=== PATIENT | female | born 1935 | race African-American/Black ===

== ENCOUNTER 2017-01-25 17:48 | Inpatient (IN) ==
[2017-01-25] MEDS ORDERED: methylPREDNISolone SOD SUC 125 MG/2 ML VIAL IV STA (18:56)
[2017-01-25] MEDS ORDERED: ONDANSETRON 4 MG/2 ML VIAL IV STA (18:56)
[2017-01-25] MEDS ORDERED: FUROSEMIDE 100 MG/10 ML VIAL IV STA (18:56)
[2017-01-25] MEDS ORDERED: cefTRIAXone 1,000 MG in SODIUM CHLORIDE 0.9% 100 ML IV STA (18:56)
[2017-01-25] MEDS ORDERED: ALBUTEROL 2.5 MG/3 ML NEB RESP TX SCH (19:00)
[2017-01-25] MEDS ORDERED: FUROSEMIDE 100 MG/10 ML VIAL ONE (20:26)
[2017-01-25] MEDS ORDERED: ONDANSETRON 4 MG/2 ML VIAL ONE (20:26)
[2017-01-25] MEDS ORDERED: methylPREDNISolone SOD SUC 125 MG/2 ML VIAL ONE (20:26)
[2017-01-25] MEDS ORDERED: cefTRIAXone 250 MG VIAL ONE (20:26)
[2017-01-25 20:34] LABS: Basophils # 0.1 10*3/uL (0.0-0.2); Basophils % 0.3 % (0.0-0.8); Eosinophils # 0.2 10*3/uL (0.0-0.87); Eosinophils % 1.2 % (0.00-10.9); Hematocrit 39.6 VOL% (35.7-47.0); Hemoglobin 13.3 GM/DL (12.0-16.0); Immature Granulocytes % 0.6 %; Immature Granulocytes Absolute 0.09 #; Lymphocytes # 1.5 10*3/uL (1.4-4.0); Lymphocytes % 10.2 % (21.3-54.2); Mean Corpuscular HGB Conc 33.6 GM/DL (32-36); Mean Corpuscular Hemoglobin 27 PG (27-34); Mean Platelet Volume 11.4 FL (9.6-12.0); Monocytes # 0.7 10*3/uL (0.11-0.8); Monocytes % 4.8 % (1.7-12.7); Neutrophils # 12.1 10*3/uL (1.4-7.4); Neutrophils % 82.9 % (38.7-73.9); Platelet Count 270 T/CUMM (130-400); Red Blood Count 4.95 MC/CUMM (3.8-5.5); Red Cell Distribution Width 14.9 % (9.3-17.3); White Blood Count 14.6 T/CUMM (4-12)
[2017-01-25] MEDS ORDERED: cefTRIAXone 1,000 MG VIAL ONE (20:35)
[2017-01-25] MEDS ORDERED: SODIUM CHLORIDE 0.9% 100 ML IV ONE (20:36)
[2017-01-25 20:40] LABS: Apearance,Urine CLOUDY (Clear); Bilirubin,Urine Negative (Negative); Blood, Urine Moderate mg/dL (Negative); Glucose,Urine (UA) 150 mg/dL (Negative); Ketones,Urine Negative (Negative); Nitrite,Urine Negative (Negative); Protein,Urine 30 MG/DL; RBC,Urine 39 /HPF (0-4); Squamous Epithelial Cell,Urine Occasional /HPF (0-10); Urine Color Dark yellow (Yellow); Urine Specific Gravity 1.019 (1.001-1.035); Urine Urobilinogen < 2.0 EU/DL (0.2-1.0); WBC,Urine 2110 /HPF (0-6)
[2017-01-25 20:45] LABS: PT Patient Result 10.7 SECS
[2017-01-25 21:13] LABS: Alanine Aminotransferase 21 U/L (13-56); Albumin 3.8 G/DL (3.4-5.0); Alkaline Phosphatase 68 U/L (45-117); Aspartate Amino Transferase 11 U/L (0-37); Bilirubin,Total < 0.39 MG/DL (0.2-1.0); Blood Urea Nitrogen 18 MG/DL (7-18); Calcium 9.2 MG/DL (8.5-10.1); Glucose 222 MG/DL (74-106); Magnesium 2.2 MG/DL (1.8-2.4); Osmolality,Calculated 278.1 MOS/KG (273-304); Potassium 4.3 MMOL/L (3.5-5.1); Sodium 135 MMOL/L (136-145); Total Protein 7.9 G/DL (6.4-8.3); Troponin I Only < 0.015 NG/ML (0.00-0.045)
[2017-01-25] MEDS ORDERED: ONDANSETRON 4 MG/2 ML VIAL IV PRN (22:15)
[2017-01-25] MEDS ORDERED: DOCUSATE SODIUM 100 MG CAPSULE PO PRN (22:15)
[2017-01-25] MEDS ORDERED: GLUCAGON 1 MG VIAL IM PRN (22:31)
[2017-01-25] MEDS ORDERED: DEXTROSE 50% 25 GM/50 ML VIAL IV PRN (22:31)
[2017-01-26] MEDS: SODIUM CHLORIDE 0.45% 1,000 ML IV SCH ×2 (01:26→15:42)
[2017-01-26] MEDS: LEVOFLOXACIN INJ 750 MG in PREMIX 1 EACH IV SCH ×2 (01:34→20:23)
[2017-01-26 05:59] LABS: Basophils % 0.2 % (0.0-0.8); Hematocrit 37.6 VOL% (35.7-47.0); Hemoglobin 12.5 GM/DL (12.0-16.0); Immature Granulocytes % 0.5 %; Immature Granulocytes Absolute 0.07 #; Lymphocytes # 0.8 10*3/uL (1.4-4.0); Lymphocytes % 5.2 % (21.3-54.2); Mean Corpuscular HGB Conc 33.2 GM/DL (32-36); Mean Corpuscular Hemoglobin 27 PG (27-34); Mean Corpuscular Volume 79.8 FL (87-102); Mean Platelet Volume 11.9 FL (9.6-12.0); Monocytes # 0.2 10*3/uL (0.11-0.8); Monocytes % 1.1 % (1.7-12.7); Neutrophils # 13.6 10*3/uL (1.4-7.4); Platelet Count 291 T/CUMM (130-400); Red Blood Count 4.71 MC/CUMM (3.8-5.5); White Blood Count 14.6 T/CUMM (4-12)
[2017-01-26 06:40] LABS: Calcium 8.9 MG/DL (8.5-10.1); Osmolality,Calculated 285.2 MOS/KG (273-304); Potassium 4.2 MMOL/L (3.5-5.1); Thyroid Stimulating Hormone 0.898 uIU/ml (0.358-3.74)
[2017-01-26 07:08] LABS: Hypochromasia Slight; Lymphocytes 6 % (20-55); Platelet Estimate Normal; Segmented Neutrophils 91 % (50-85); Total Cells Counted 100
[2017-01-26] MEDS ORDERED: methylPREDNISolone SOD SUC 125 MG/2 ML VIAL IV SCH (09:00)
[2017-01-26] MEDS: INSULIN REGULAR 100 UNIT/ML SUBCUT SCH ×4 (09:04→20:13)
[2017-01-26] MEDS: ENOXAPARIN 40 MG/0.4 ML SYRINGE SUBCUT SCH (09:04)
[2017-01-26] MEDS: amLODIPine 5 MG TABLET PO SCH (09:05)
[2017-01-26] MEDS: PANTOPRAZOLE 40 MG TABLET PO SCH (09:05)
[2017-01-26] MEDS: LOSARTAN 25 MG TABLET PO SCH (09:05)
[2017-01-26] MEDS: ACETAMINOPHEN 325 MG TABLET PO PRN (15:44)
[2017-01-26] MEDS: INSULIN GLARGINE 100 UNIT/ML SUBCUT SCH (20:14)
[2017-01-26] MEDS: ATORVASTATIN 40 MG TABLET PO SCH (20:16)
[2017-01-26] MEDS: methylPREDNISolone SOD SUC 40 MG/1 ML VIAL IV SCH (20:17)
[2017-01-27] MEDS ORDERED: LORazepam 2 MG/1 ML VIAL IV ONE (03:06)
[2017-01-27 06:17] LABS: Basophils % 0.2 % (0.0-0.8); Hematocrit 40.7 VOL% (35.7-47.0); Hemoglobin 13.4 GM/DL (12.0-16.0); Immature Granulocytes % 0.8 %; Immature Granulocytes Absolute 0.11 #; Lymphocytes % 6.7 % (21.3-54.2); Mean Corpuscular HGB Conc 32.9 GM/DL (32-36); Mean Corpuscular Hemoglobin 26 PG (27-34); Mean Corpuscular Volume 79.8 FL (87-102); Monocytes # 0.7 10*3/uL (0.11-0.8); Neutrophils # 12.4 10*3/uL (1.4-7.4); Neutrophils % 87.3 % (38.7-73.9); Platelet Count 316 T/CUMM (130-400); Red Cell Distribution Width 15.1 % (9.3-17.3); White Blood Count 14.2 T/CUMM (4-12)
[2017-01-27] MEDS: SODIUM CHLORIDE 0.45% 1,000 ML IV SCH ×2 (06:40→20:21)
[2017-01-27 06:48] LABS: Calcium 9.3 MG/DL (8.5-10.1); Potassium 4.2 MMOL/L (3.5-5.1)
[2017-01-27] MEDS: LOSARTAN 25 MG TABLET PO SCH (08:55)
[2017-01-27] MEDS: amLODIPine 5 MG TABLET PO SCH (08:55)
[2017-01-27] MEDS: methylPREDNISolone SOD SUC 40 MG/1 ML VIAL IV SCH ×2 (08:55→20:22)
[2017-01-27] MEDS: PANTOPRAZOLE 40 MG TABLET PO SCH (08:55)
[2017-01-27] MEDS: ENOXAPARIN 40 MG/0.4 ML SYRINGE SUBCUT SCH (08:56)
[2017-01-27] MEDS: INSULIN REGULAR 100 UNIT/ML SUBCUT SCH ×4 (08:56→21:12)
[2017-01-27] MEDS: guaiFENesin/DM ER 600-30 MG TABLET PO PRN (12:11)
[2017-01-27] MEDS: ACETAMINOPHEN 325 MG TABLET PO PRN (14:44)
[2017-01-27] MEDS: LEVOFLOXACIN INJ 750 MG in PREMIX 1 EACH IV SCH (20:21)
[2017-01-27] MEDS: ATORVASTATIN 40 MG TABLET PO SCH (21:03)
[2017-01-27] MEDS: INSULIN GLARGINE 100 UNIT/ML SUBCUT SCH (21:11)
[2017-01-28] MEDS: PANTOPRAZOLE 40 MG TABLET PO SCH (08:56)
[2017-01-28] MEDS: amLODIPine 5 MG TABLET PO SCH (08:56)
[2017-01-28] MEDS: LOSARTAN 25 MG TABLET PO SCH (08:56)
[2017-01-28] MEDS: guaiFENesin/DM ER 600-30 MG TABLET PO PRN (08:56)
[2017-01-28] MEDS: ENOXAPARIN 40 MG/0.4 ML SYRINGE SUBCUT SCH (08:57)
[2017-01-28] MEDS: methylPREDNISolone SOD SUC 40 MG/1 ML VIAL IV SCH ×2 (08:57→20:56)
[2017-01-28] MEDS: INSULIN REGULAR 100 UNIT/ML SUBCUT SCH ×4 (08:57→20:39)
[2017-01-28] MEDS: SODIUM CHLORIDE 0.45% 1,000 ML IV SCH (12:07)
[2017-01-28] MEDS: ACETAMINOPHEN 325 MG TABLET PO PRN (13:57)
[2017-01-28] MEDS: INSULIN GLARGINE 100 UNIT/ML SUBCUT SCH (20:38)
[2017-01-28] MEDS: ATORVASTATIN 40 MG TABLET PO SCH (20:38)
[2017-01-28] MEDS: LEVOFLOXACIN INJ 750 MG in PREMIX 1 EACH IV SCH (20:57)
[2017-01-29] MEDS: SODIUM CHLORIDE 0.45% 1,000 ML IV SCH (03:55)
[2017-01-29] MEDS ORDERED: LEVOFLOXACIN 500 MG TABLET PO SCH (08:00)
[2017-01-29] MEDS: PANTOPRAZOLE 40 MG TABLET PO SCH (08:23)
[2017-01-29] MEDS: LOSARTAN 25 MG TABLET PO SCH (08:23)
[2017-01-29] MEDS: INSULIN REGULAR 100 UNIT/ML SUBCUT SCH (08:23)
[2017-01-29] MEDS: amLODIPine 5 MG TABLET PO SCH (08:23)
[2017-01-29] MEDS: guaiFENesin/DM ER 600-30 MG TABLET PO PRN (08:23)
[2017-01-29] MEDS: ENOXAPARIN 40 MG/0.4 ML SYRINGE SUBCUT SCH (08:24)
[2017-01-29 08:40] VITALS: BP 161/68
[2017-01-29] MEDS ORDERED: predniSONE 20 MG TABLET PO SCH (09:00)
[2017-01-29] MEDS ORDERED: SULFAMETHOX/TRIMETHOPRIM 800-160 MG TABLET PO SCH (09:00)
== END 2017-01-29 11:23 | disposition home or self-care (01) | DRG 202 ==
LOC: N.ED 17:48 → SUATTDRO 22:15 → N.EDINP 22:15 → N.2E 23:59
PROVIDERS: ADMIT Internal Medicine; ATTEND Hospitalist

== ENCOUNTER 2019-06-09 09:44 | Observation (INO) ==
[2019-06-09 10:32] LABS: Basophils # 0.1 10*3/uL (0.0-0.2); Basophils % 0.6 % (0.0-0.8); Eosinophils # 0.1 10*3/uL (0.0-0.87); Eosinophils % 0.7 % (0.00-10.9); Hematocrit 40.3 VOL% (35.7-47.0); Hemoglobin 12.6 GM/DL (12.0-16.0); Immature Granulocytes % 0.4 %; Immature Granulocytes Absolute 0.05 #; Lymphocytes # 2.5 10*3/uL (1.4-4.0); Lymphocytes % 21.5 % (21.3-54.2); Mean Corpuscular HGB Conc 31.3 GM/DL (32-36); Mean Corpuscular Volume 81.6 FL (87-102); Mean Platelet Volume 11.7 FL (9.6-12.0); Neutrophils % 71.8 % (38.7-73.9); Platelet Count 255 T/CUMM (130-400); Red Blood Count 4.94 MC/CUMM (3.8-5.5); Red Cell Distribution Width 15.2 % (9.3-17.3); White Blood Count 11.6 T/CUMM (4-12)
[2019-06-09 10:34] LABS: Alanine Aminotransferase 21 U/L (13-56); Albumin 3.5 G/DL (3.4-5.0); Alkaline Phosphatase 68 U/L (45-117); Aspartate Amino Transferase 12 U/L (0-37); Bilirubin,Total < 0.39 MG/DL (0.2-1.0); Blood Urea Nitrogen 15 MG/DL (7-18); Calcium 8.9 MG/DL (8.5-10.1); Estimated Glom Filtration Rate 73 ML/MIN; Glucose 334 MG/DL (74-106); Total Protein 7.9 G/DL (6.4-8.3)
[2019-06-09 10:48] LABS: Apearance,Urine Slightly Hazy (Clear); Bacteria,Urine Many /HPF (Few); Bilirubin,Urine Negative (Negative); Blood, Urine Small mg/dL (Negative); Glucose,Urine (UA) >=500 mg/dL (Negative); Hyaline Casts,Urine 6 /LPF (0-3); Ketones,Urine Negative (Negative); Mucus,Urine Many /LPF (Occasional); Nitrite,Urine Negative (Negative); Protein,Urine Negative; Urine Color Yellow (Yellow); Urine Specific Gravity 1.026 (1.001-1.035); Urine Urobilinogen < 2.0 EU/DL (0.2-1.0); WBC,Urine 19 /HPF (0-6)
[2019-06-09] MEDS ORDERED: cefTRIAXone 1,000 MG in SODIUM CHLORIDE 0.9% 100 ML IV STA (11:24)
[2019-06-09] MEDS ORDERED: AZITHROMYCIN INJ 500 MG in SODIUM CHLORIDE 0.9% 250 ML IV STA (11:45)
[2019-06-09] MEDS ORDERED: ONDANSETRON 4 MG/2 ML VIAL IV PRN (12:09)
[2019-06-09] MEDS ORDERED: DEXTROSE 10% 250 ML BAG IV PRN (12:11)
[2019-06-09] MEDS ORDERED: GLUCAGON 1 MG VIAL IM PRN (12:11)
[2019-06-09] MEDS: INSULIN LISPRO 100 UNIT/ML SUBCUT SCH ×2 (16:31→21:14)
[2019-06-09] MEDS: ALBUTEROL/IPRATROPIUM 3 ML NEB RESP TX SCH (19:32)
[2019-06-09] MEDS: ACETAMINOPHEN 325 MG TABLET PO PRN (21:13)
[2019-06-09] MEDS: INSULIN GLARGINE 100 UNIT/ML SUBCUT SCH (21:14)
[2019-06-09] MEDS: DONEPEZIL 5 MG TABLET PO SCH (21:14)
[2019-06-10] MEDS: ALBUTEROL/IPRATROPIUM 3 ML NEB RESP TX SCH ×5 (01:15→20:37)
[2019-06-10 06:01] LABS: Calcium 8.7 MG/DL (8.5-10.1); Osmolality,Calculated 280.1 MOS/KG (273-304)
[2019-06-10 07:17] LABS: Basophils % 0.4 % (0.0-0.8); Eosinophils # 0.1 10*3/uL (0.0-0.87); Eosinophils % 1.4 % (0.00-10.9); Hematocrit 34.4 VOL% (35.7-47.0); Immature Granulocytes % 0.4 %; Immature Granulocytes Absolute 0.04 #; Lymphocytes # 1.6 10*3/uL (1.4-4.0); Lymphocytes % 16.6 % (21.3-54.2); Mean Corpuscular Volume 80.9 FL (87-102); Mean Platelet Volume 11.8 FL (9.6-12.0); Monocytes % 7.9 % (1.7-12.7); Neutrophils % 73.3 % (38.7-73.9); Platelet Count 230 T/CUMM (130-400); Red Blood Count 4.25 MC/CUMM (3.8-5.5); Red Cell Distribution Width 15.8 % (9.3-17.3); White Blood Count 9.4 T/CUMM (4-12)
[2019-06-10] MEDS ORDERED: AZITHROMYCIN INJ 500 MG in SODIUM CHLORIDE 0.9% 250 ML IV SCH (09:00)
[2019-06-10] MEDS ORDERED: PANTOPRAZOLE 40 MG TABLET PO SCH (09:00)
[2019-06-10] MEDS: ENOXAPARIN 40 MG/0.4 ML SYRINGE SUBCUT SCH (09:30)
[2019-06-10] MEDS: INSULIN LISPRO 100 UNIT/ML SUBCUT SCH ×4 (09:30→22:30)
[2019-06-10] MEDS: cefTRIAXone 1,000 MG in SYRINGE 1 EACH IV SCH (09:31)
[2019-06-10] MEDS ORDERED: HALOPERIDOL 5 MG/ML AMP IV ONE (21:08)
[2019-06-10] MEDS: INSULIN GLARGINE 100 UNIT/ML SUBCUT SCH (22:29)
[2019-06-10] MEDS: DONEPEZIL 5 MG TABLET PO SCH (22:29)
[2019-06-11] MEDS: ALBUTEROL/IPRATROPIUM 3 ML NEB RESP TX SCH ×4 (00:18→18:48)
[2019-06-11 04:43] LABS: Basophils # 0.1 10*3/uL (0.0-0.2); Basophils % 0.5 % (0.0-0.8); Eosinophils # 0.2 10*3/uL (0.0-0.87); Eosinophils % 1.7 % (0.00-10.9); Hematocrit 33.1 VOL% (35.7-47.0); Hemoglobin 10.6 GM/DL (12.0-16.0); Immature Granulocytes % 0.4 %; Immature Granulocytes Absolute 0.04 #; Lymphocytes # 2.2 10*3/uL (1.4-4.0); Lymphocytes % 22.1 % (21.3-54.2); Mean Corpuscular Volume 79.6 FL (87-102); Mean Platelet Volume 12.3 FL (9.6-12.0); Monocytes % 7.8 % (1.7-12.7); Neutrophils % 67.5 % (38.7-73.9); Platelet Count 220 T/CUMM (130-400); Red Blood Count 4.16 MC/CUMM (3.8-5.5); Red Cell Distribution Width 15.8 % (9.3-17.3); White Blood Count 10.1 T/CUMM (4-12)
[2019-06-11 05:23] LABS: Calcium 8.7 MG/DL (8.5-10.1); Osmolality,Calculated 276.8 MOS/KG (273-304)
[2019-06-11] MEDS: INSULIN LISPRO 100 UNIT/ML SUBCUT SCH ×4 (09:03→20:46)
[2019-06-11] MEDS: cefTRIAXone 1,000 MG in SYRINGE 1 EACH IV SCH (09:03)
[2019-06-11] MEDS: ENOXAPARIN 40 MG/0.4 ML SYRINGE SUBCUT SCH (09:03)
[2019-06-11] MEDS: INSULIN GLARGINE 100 UNIT/ML SUBCUT SCH (20:45)
[2019-06-11] MEDS: CEFDINIR 300 MG CAPSULE PO SCH (20:46)
[2019-06-11] MEDS: DONEPEZIL 5 MG TABLET PO SCH (20:46)
[2019-06-12] MEDS: ALBUTEROL/IPRATROPIUM 3 ML NEB RESP TX SCH ×2 (00:55→07:12)
[2019-06-12] MEDS: ACETAMINOPHEN 325 MG TABLET PO PRN (02:22)
[2019-06-12 07:53] VITALS: BP 143/46
[2019-06-12] MEDS: INSULIN LISPRO 100 UNIT/ML SUBCUT SCH (08:03)
[2019-06-12] MEDS: CEFDINIR 300 MG CAPSULE PO SCH (08:51)
[2019-06-12] MEDS: ENOXAPARIN 40 MG/0.4 ML SYRINGE SUBCUT SCH (08:52)
== END 2019-06-12 11:51 ==
LOC: N.ED 09:44 → SUATTDRO 12:09 → N.EDINP 12:09 → INTOOBSV 12:09 → N.EDINP 13:01 → N.2E 13:14
PROVIDERS: ADMIT Internal Medicine; ATTEND Internal Medicine

== ENCOUNTER 2020-01-19 23:08 | Inpatient (IN) ==
[2020-01-19] MEDS ORDERED: ATROPINE 1 MG/10 ML SYRINGE IV STA ×3 (23:42→23:44)
[2020-01-19 23:54] LABS: Basophils # 0.1 10*3/uL (0.0-0.2); Basophils % 0.5 % (0.0-0.8); Eosinophils # 0.1 10*3/uL (0.0-0.87); Eosinophils % 0.8 % (0.00-10.9); Hemoglobin 11.5 GM/DL (12.0-16.0); Immature Granulocytes % 0.5 %; Immature Granulocytes Absolute 0.07 #; Lymphocytes # 1.7 10*3/uL (1.4-4.0); Lymphocytes % 12.7 % (21.3-54.2); Mean Corpuscular HGB Conc 31.9 GM/DL (32-36); Mean Corpuscular Volume 79.5 FL (87-102); Monocytes % 6.4 % (1.7-12.7); Neutrophils % 79.1 % (38.7-73.9); Platelet Count 180 T/CUMM (130-400); Red Blood Count 4.53 MC/CUMM (3.8-5.5); Red Cell Distribution Width 17.6 % (9.3-17.3); White Blood Count 13.2 T/CUMM (4-12)
[2020-01-20 00:01] LABS: Albumin 3.3 G/DL (3.4-5.0); Bilirubin,Total 0.5 MG/DL (0.2-1.0); Calcium 8.5 MG/DL (8.5-10.1); Osmolality,Calculated 284.4 MOS/KG (273-304); Thyroid Stimulating Hormone 4.05 uIU/ml (0.358-3.74); Total Protein 7.2 G/DL (6.4-8.3)
[2020-01-20 00:03] LABS: INR 1.1; PT Patient Result 11.5 SECS (9.8-11.9)
[2020-01-20] MEDS ORDERED: LIDOCAINE 1% 20 ML VIAL ONE ×2 (00:19→15:48)
[2020-01-20] MEDS ORDERED: HEPARIN/NACL 0.9% 2 UNITS/ML 500 ML IV ONE (00:20)
[2020-01-20] MEDS ORDERED: MIDAZOLAM 2 MG/2 ML VIAL ONE ×2 (00:23→15:30)
[2020-01-20] MEDS ORDERED: fentaNYL 100 MCG/2 ML VIAL ONE ×2 (00:23→15:30)
[2020-01-20 01:26] LABS: Bacteria,Urine Many /HPF (Few); Bilirubin,Urine Negative (Negative); Blood, Urine Small mg/dL (Negative); Glucose,Urine (UA) Negative (Negative); Hyaline Casts,Urine 9 /LPF (0-3); Ketones,Urine Negative (Negative); Mucus,Urine Few /LPF (Occasional); Nitrite,Urine Negative (Negative); Protein,Urine >=500 MG/DL; Squamous Epithelial Cell,Urine Occasional /HPF (0-10); Urine Appearance CLOUDY (Clear); Urine Color Amber (Yellow); Urine Specific Gravity 1.025 (1.001-1.035); Urine Urobilinogen < 2.0 EU/DL (0.2-1.0)
[2020-01-20] MEDS ORDERED: DEXTROSE 50% 25 GM/50 ML VIAL IV PRN (01:33)
[2020-01-20] MEDS ORDERED: GLUCAGON 1 MG VIAL IM PRN (01:33)
[2020-01-20] MEDS ORDERED: DEXTROSE 50% 25 GM/50 ML SYRINGE IV PRN (01:35)
[2020-01-20] MEDS ORDERED: hydrALAZINE 20 MG/1 ML VIAL IV PRN (02:42)
[2020-01-20] MEDS ORDERED: QUEtiapine 25 MG TABLET PO ONE (03:23)
[2020-01-20] MEDS ORDERED: FUROSEMIDE 40 MG/4 ML VIAL IM ONE (03:23)
[2020-01-20] MEDS ORDERED: FUROSEMIDE 40 MG/4 ML VIAL IV ONE (03:48)
[2020-01-20] MEDS ORDERED: INFLUENZA VIRUS VACCINE 0.5 ML SYRINGE IM ONE (04:48)
[2020-01-20] MEDS ORDERED: diphenhydrAMINE CAP 25 MG CAPSULE PO ONE (09:49)
[2020-01-20] MEDS ORDERED: ceFAZolin 1,000 MG VIAL IRRIG ONE (09:49)
[2020-01-20] MEDS ORDERED: DIAZEPAM 5 MG TABLET PO ONE (09:49)
[2020-01-20] MEDS ORDERED: DEXTROSE 5% NACL 0.45% 1,000 ML IV SCH (10:00)
[2020-01-20 11:36] LABS: Basophils % 0.3 % (0.0-0.8); Eosinophils % 0.2 % (0.00-10.9); Hematocrit 32.4 VOL% (35.7-47.0); Hemoglobin 10.4 GM/DL (12.0-16.0); Immature Granulocytes % 0.4 %; Immature Granulocytes Absolute 0.06 #; Lymphocytes # 1.7 10*3/uL (1.4-4.0); Lymphocytes % 12.5 % (21.3-54.2); Mean Corpuscular HGB Conc 32.1 GM/DL (32-36); Mean Corpuscular Volume 79.8 FL (87-102); Mean Platelet Volume 12.5 FL (9.6-12.0); Monocytes % 6.7 % (1.7-12.7); Neutrophils % 79.9 % (38.7-73.9); Platelet Count 202 T/CUMM (130-400); Red Blood Count 4.06 MC/CUMM (3.8-5.5); Red Cell Distribution Width 17.3 % (9.3-17.3); White Blood Count 13.4 T/CUMM (4-12)
[2020-01-20 11:54] LABS: Hypochromasia 1+; Microcytosis 1+; Platelet Estimate Adequate
[2020-01-20 11:57] LABS: Calcium 8.7 MG/DL (8.5-10.1); Osmolality,Calculated 280.4 MOS/KG (273-304)
[2020-01-20] MEDS ORDERED: ceFAZolin 1,000 MG VIAL ONE (15:31)
[2020-01-20] MEDS ORDERED: TISSUE ADHESIVE 1 EACH APPLICATOR TOP ONE (16:08)
[2020-01-20] MEDS ORDERED: PROMETHAZINE 25 MG/1 ML VIAL ONE (16:25)
[2020-01-20] MEDS ORDERED: ONDANSETRON 4 MG/2 ML VIAL IV PRN (17:54)
[2020-01-20] MEDS ORDERED: ALUMINUM/MAGNES/SIMETH MAX STR 30 ML UDCUP PO PRN (17:54)
[2020-01-20] MEDS: ZALEPLON 5 MG CAPSULE PO PRN (21:39)
[2020-01-20] MEDS: LORazepam 2 MG/1 ML VIAL IV PRN (22:52)
[2020-01-21] MEDS: LORazepam 2 MG/1 ML VIAL IV PRN ×2 (03:50→21:16)
[2020-01-21 06:18] LABS: Basophils % 0.3 % (0.0-0.8); Eosinophils # 0.1 10*3/uL (0.0-0.87); Hematocrit 30.7 VOL% (35.7-47.0); Hemoglobin 9.7 GM/DL (12.0-16.0); Immature Granulocytes % 0.6 %; Immature Granulocytes Absolute 0.07 #; Lymphocytes # 1.3 10*3/uL (1.4-4.0); Lymphocytes % 10.6 % (21.3-54.2); Mean Corpuscular HGB Conc 31.6 GM/DL (32-36); Mean Corpuscular Volume 81.6 FL (87-102); Mean Platelet Volume 11.8 FL (9.6-12.0); Monocytes % 7.6 % (1.7-12.7); Neutrophils % 79.9 % (38.7-73.9); Platelet Count 183 T/CUMM (130-400); Red Blood Count 3.76 MC/CUMM (3.8-5.5); Red Cell Distribution Width 17.5 % (9.3-17.3); White Blood Count 11.9 T/CUMM (4-12)
[2020-01-21 07:54] LABS: Calcium 8.3 MG/DL (8.5-10.1); Osmolality,Calculated 284.1 MOS/KG (273-304)
[2020-01-21] MEDS ORDERED: LABETALOL 20 MG/4 ML SYRINGE IV ONE (07:55)
[2020-01-21] MEDS: FUROSEMIDE 40 MG/4 ML VIAL IV SCH (08:30)
[2020-01-21] MEDS: POTASSIUM CHLORIDE 20 MEQ TABLET PO SCH (08:49)
[2020-01-21] MEDS: amLODIPine 5 MG TABLET PO SCH (08:49)
[2020-01-21] MEDS: SERTRALINE 25 MG TABLET PO SCH (08:49)
[2020-01-21] MEDS: DOCUSATE SODIUM 100 MG CAPSULE PO SCH (08:49)
[2020-01-21] MEDS ORDERED: amLODIPine 2.5 MG TABLET PO SCH (09:00)
[2020-01-21] MEDS ORDERED: HALOPERIDOL 5 MG/ML AMP IM ONE (13:36)
[2020-01-21] MEDS: QUEtiapine 25 MG TABLET PO SCH (21:44)
[2020-01-21] MEDS: DONEPEZIL 5 MG TABLET PO SCH (21:44)
[2020-01-22] MEDS: LORazepam 2 MG/1 ML VIAL IV PRN (02:22)
[2020-01-22 05:23] LABS: Calcium 8.1 MG/DL (8.5-10.1); Osmolality,Calculated 280.4 MOS/KG (273-304)
[2020-01-22 07:29] LABS: Basophils # 0.1 10*3/uL (0.0-0.2); Basophils % 0.4 % (0.0-0.8); Eosinophils # 0.2 10*3/uL (0.0-0.87); Eosinophils % 1.4 % (0.00-10.9); Hematocrit 34.8 VOL% (35.7-47.0); Hemoglobin 10.7 GM/DL (12.0-16.0); Immature Granulocytes % 0.5 %; Immature Granulocytes Absolute 0.07 #; Lymphocytes # 1.5 10*3/uL (1.4-4.0); Lymphocytes % 11.2 % (21.3-54.2); Mean Corpuscular HGB Conc 30.7 GM/DL (32-36); Mean Corpuscular Volume 84.7 FL (87-102); Mean Platelet Volume 13.6 FL (9.6-12.0); Monocytes % 9.2 % (1.7-12.7); Neutrophils % 77.3 % (38.7-73.9); Platelet Count 177 T/CUMM (130-400); Red Blood Count 4.11 MC/CUMM (3.8-5.5); Red Cell Distribution Width 17.9 % (9.3-17.3); White Blood Count 13.4 T/CUMM (4-12)
[2020-01-22] MEDS: DOCUSATE SODIUM 100 MG CAPSULE PO SCH (09:20)
[2020-01-22] MEDS: amLODIPine 5 MG TABLET PO SCH (09:20)
[2020-01-22] MEDS: SERTRALINE 25 MG TABLET PO SCH (09:20)
[2020-01-22] MEDS: FUROSEMIDE 40 MG/4 ML VIAL IV SCH (09:20)
[2020-01-22] MEDS: POTASSIUM CHLORIDE 20 MEQ TABLET PO SCH (09:20)
[2020-01-22] MEDS: QUEtiapine 25 MG TABLET PO SCH ×2 (20:05→20:44)
[2020-01-22] MEDS: DONEPEZIL 5 MG TABLET PO SCH ×2 (20:05→20:44)
[2020-01-22] MEDS: ACETAMINOPHEN 325 MG TABLET PO PRN (21:17)
[2020-01-23] MEDS: LORazepam 2 MG/1 ML VIAL IV PRN (00:31)
[2020-01-23 08:00] LABS: Basophils % 0.3 % (0.0-0.8); Eosinophils # 0.4 10*3/uL (0.0-0.87); Eosinophils % 3.3 % (0.00-10.9); Hematocrit 29.3 VOL% (35.7-47.0); Hemoglobin 9.4 GM/DL (12.0-16.0); Immature Granulocytes % 0.3 %; Immature Granulocytes Absolute 0.04 #; Lymphocytes # 1.2 10*3/uL (1.4-4.0); Lymphocytes % 10.3 % (21.3-54.2); Mean Corpuscular HGB Conc 32.1 GM/DL (32-36); Mean Corpuscular Volume 79.8 FL (87-102); Mean Platelet Volume 12.6 FL (9.6-12.0); Monocytes % 8.7 % (1.7-12.7); Neutrophils % 77.1 % (38.7-73.9); Platelet Count 175 T/CUMM (130-400); Red Blood Count 3.67 MC/CUMM (3.8-5.5); Red Cell Distribution Width 17.3 % (9.3-17.3); White Blood Count 11.6 T/CUMM (4-12)
[2020-01-23 08:14] LABS: Calcium 8.4 MG/DL (8.5-10.1); Osmolality,Calculated 275.7 MOS/KG (273-304)
[2020-01-23] MEDS: POTASSIUM CHLORIDE 20 MEQ TABLET PO SCH (08:24)
[2020-01-23] MEDS: FUROSEMIDE 40 MG/4 ML VIAL IV SCH (08:24)
[2020-01-23] MEDS: DOCUSATE SODIUM 100 MG CAPSULE PO SCH (08:24)
[2020-01-23] MEDS: amLODIPine 5 MG TABLET PO SCH (08:24)
[2020-01-23] MEDS: SERTRALINE 25 MG TABLET PO SCH (08:24)
[2020-01-23] MEDS: QUEtiapine 25 MG TABLET PO SCH (21:24)
[2020-01-23] MEDS: DONEPEZIL 5 MG TABLET PO SCH (21:24)
[2020-01-23] MEDS: ZALEPLON 5 MG CAPSULE PO PRN (21:25)
[2020-01-24 05:42] LABS: Basophils # 0.1 10*3/uL (0.0-0.2); Basophils % 0.5 % (0.0-0.8); Eosinophils # 0.3 10*3/uL (0.0-0.87); Eosinophils % 2.7 % (0.00-10.9); Hematocrit 28.9 VOL% (35.7-47.0); Hemoglobin 9.1 GM/DL (12.0-16.0); Immature Granulocytes % 0.7 %; Immature Granulocytes Absolute 0.08 #; Lymphocytes # 1.7 10*3/uL (1.4-4.0); Lymphocytes % 14.9 % (21.3-54.2); Mean Corpuscular HGB Conc 31.5 GM/DL (32-36); Mean Corpuscular Volume 79.8 FL (87-102); Mean Platelet Volume 11.9 FL (9.6-12.0); Monocytes % 8.7 % (1.7-12.7); Neutrophils % 72.5 % (38.7-73.9); Platelet Count 178 T/CUMM (130-400); Red Blood Count 3.62 MC/CUMM (3.8-5.5); White Blood Count 11.1 T/CUMM (4-12)
[2020-01-24 06:03] LABS: Calcium 8.5 MG/DL (8.5-10.1); Osmolality,Calculated 279.7 MOS/KG (273-304)
[2020-01-24] MEDS: FUROSEMIDE 40 MG/4 ML VIAL IV SCH ×2 (11:05→16:39)
[2020-01-24] MEDS: POLYETHYLENE GLYCOL POWDER 17 GM PACK PO SCH (11:07)
[2020-01-24] MEDS: DOCUSATE SODIUM 100 MG CAPSULE PO SCH (11:07)
[2020-01-24] MEDS: POTASSIUM CHLORIDE 20 MEQ TABLET PO SCH (11:07)
[2020-01-24] MEDS: amLODIPine 5 MG TABLET PO SCH (11:08)
[2020-01-24] MEDS: SERTRALINE 25 MG TABLET PO SCH (11:08)
[2020-01-24] MEDS: LORazepam 2 MG/1 ML VIAL IV PRN (20:40)
[2020-01-24] MEDS: QUEtiapine 25 MG TABLET PO SCH (23:51)
[2020-01-24] MEDS: DONEPEZIL 5 MG TABLET PO SCH (23:51)
[2020-01-24] MEDS: ZALEPLON 5 MG CAPSULE PO PRN (23:52)
[2020-01-25 05:44] LABS: Basophils # 0.1 10*3/uL (0.0-0.2); Basophils % 0.4 % (0.0-0.8); Eosinophils # 0.2 10*3/uL (0.0-0.87); Eosinophils % 1.8 % (0.00-10.9); Hematocrit 29.6 VOL% (35.7-47.0); Hemoglobin 9.6 GM/DL (12.0-16.0); Immature Granulocytes % 0.8 %; Immature Granulocytes Absolute 0.11 #; Lymphocytes # 1.6 10*3/uL (1.4-4.0); Lymphocytes % 11.7 % (21.3-54.2); Mean Corpuscular HGB Conc 32.4 GM/DL (32-36); Mean Corpuscular Volume 78.9 FL (87-102); Mean Platelet Volume 11.2 FL (9.6-12.0); Monocytes % 7.5 % (1.7-12.7); Neutrophils % 77.8 % (38.7-73.9); Platelet Count 183 T/CUMM (130-400); Red Blood Count 3.75 MC/CUMM (3.8-5.5); Red Cell Distribution Width 16.8 % (9.3-17.3); White Blood Count 13.4 T/CUMM (4-12)
[2020-01-25 06:20] LABS: Calcium 8.5 MG/DL (8.5-10.1); Osmolality,Calculated 278.8 MOS/KG (273-304)
[2020-01-25] MEDS: FUROSEMIDE 40 MG/4 ML VIAL IV SCH ×2 (09:48→17:01)
[2020-01-25] MEDS: SERTRALINE 25 MG TABLET PO SCH (09:50)
[2020-01-25] MEDS: POLYETHYLENE GLYCOL POWDER 17 GM PACK PO SCH (09:50)
[2020-01-25] MEDS: amLODIPine 5 MG TABLET PO SCH (09:50)
[2020-01-25] MEDS: DOCUSATE SODIUM 100 MG CAPSULE PO SCH (09:50)
[2020-01-25] MEDS: POTASSIUM CHLORIDE 20 MEQ TABLET PO SCH (09:50)
[2020-01-25] MEDS: DONEPEZIL 5 MG TABLET PO SCH (20:35)
[2020-01-25] MEDS: QUEtiapine 25 MG TABLET PO SCH (20:35)
[2020-01-26 05:53] LABS: Calcium 8.5 MG/DL (8.5-10.1); Osmolality,Calculated 282.5 MOS/KG (273-304)
[2020-01-26 05:57] LABS: Basophils # 0.1 10*3/uL (0.0-0.2); Basophils % 0.6 % (0.0-0.8); Eosinophils # 0.4 10*3/uL (0.0-0.87); Eosinophils % 4.1 % (0.00-10.9); Hematocrit 29.1 VOL% (35.7-47.0); Hemoglobin 9.4 GM/DL (12.0-16.0); Immature Granulocytes % 1.7 %; Immature Granulocytes Absolute 0.17 #; Lymphocytes # 1.7 10*3/uL (1.4-4.0); Lymphocytes % 17.6 % (21.3-54.2); Mean Corpuscular HGB Conc 32.3 GM/DL (32-36); Mean Corpuscular Volume 78.2 FL (87-102); Mean Platelet Volume 12.1 FL (9.6-12.0); Monocytes % 8.1 % (1.7-12.7); Neutrophils % 67.9 % (38.7-73.9); Platelet Count 211 T/CUMM (130-400); Red Blood Count 3.72 MC/CUMM (3.8-5.5); White Blood Count 9.9 T/CUMM (4-12)
[2020-01-26] MEDS: SERTRALINE 25 MG TABLET PO SCH (09:59)
[2020-01-26] MEDS: POTASSIUM CHLORIDE 20 MEQ TABLET PO SCH (09:59)
[2020-01-26] MEDS: FUROSEMIDE 40 MG/4 ML VIAL IV SCH ×2 (09:59→17:17)
[2020-01-26] MEDS: DOCUSATE SODIUM 100 MG CAPSULE PO SCH (09:59)
[2020-01-26] MEDS: POLYETHYLENE GLYCOL POWDER 17 GM PACK PO SCH (09:59)
[2020-01-26] MEDS: amLODIPine 5 MG TABLET PO SCH (09:59)
[2020-01-26] MEDS: LORazepam 2 MG/1 ML VIAL IV PRN (17:19)
[2020-01-26] MEDS: QUEtiapine 25 MG TABLET PO SCH (20:12)
[2020-01-26] MEDS: DONEPEZIL 5 MG TABLET PO SCH (20:12)
[2020-01-27 05:32] LABS: Basophils # 0.1 10*3/uL (0.0-0.2); Basophils % 0.5 % (0.0-0.8); Eosinophils # 0.3 10*3/uL (0.0-0.87); Eosinophils % 2.9 % (0.00-10.9); Hematocrit 30.4 VOL% (35.7-47.0); Hemoglobin 9.9 GM/DL (12.0-16.0); Immature Granulocytes Absolute 0.12 #; Lymphocytes # 1.7 10*3/uL (1.4-4.0); Lymphocytes % 14.9 % (21.3-54.2); Mean Corpuscular HGB Conc 32.6 GM/DL (32-36); Mean Corpuscular Volume 78.4 FL (87-102); Monocytes % 7.6 % (1.7-12.7); NRBC # 0.02 10*3/uL; Neutrophils % 73.1 % (38.7-73.9); Platelet Count 204 T/CUMM (130-400); Red Blood Count 3.88 MC/CUMM (3.8-5.5); Red Cell Distribution Width 17.7 % (9.3-17.3); White Blood Count 11.7 T/CUMM (4-12)
[2020-01-27 07:29] LABS: Calcium 8.9 MG/DL (8.5-10.1)
[2020-01-27] MEDS: DOCUSATE SODIUM 100 MG CAPSULE PO SCH (09:23)
[2020-01-27] MEDS: FUROSEMIDE 40 MG TABLET PO SCH (09:23)
[2020-01-27] MEDS: SERTRALINE 25 MG TABLET PO SCH (09:23)
[2020-01-27] MEDS: POTASSIUM CHLORIDE 20 MEQ TABLET PO SCH (09:24)
[2020-01-27] MEDS: POLYETHYLENE GLYCOL POWDER 17 GM PACK PO SCH (09:24)
[2020-01-27] MEDS: amLODIPine 5 MG TABLET PO SCH (09:26)
[2020-01-27] MEDS: FUROSEMIDE 40 MG/4 ML VIAL IV SCH (09:31)
[2020-01-27] MEDS: QUEtiapine 25 MG TABLET PO SCH (21:36)
[2020-01-27] MEDS: DONEPEZIL 5 MG TABLET PO SCH (21:36)
[2020-01-27] MEDS: LORazepam 2 MG/1 ML VIAL IV PRN (21:36)
[2020-01-27] MEDS: ZALEPLON 5 MG CAPSULE PO PRN (21:37)
[2020-01-28 08:51] LABS: Basophils # 0.1 10*3/uL (0.0-0.2); Basophils % 0.5 % (0.0-0.8); Eosinophils # 0.3 10*3/uL (0.0-0.87); Eosinophils % 3.1 % (0.00-10.9); Hematocrit 31.2 VOL% (35.7-47.0); Hemoglobin 10.3 GM/DL (12.0-16.0); Lymphocytes # 1.5 10*3/uL (1.4-4.0); Lymphocytes % 14.9 % (21.3-54.2); Mean Corpuscular Volume 77.2 FL (87-102); Mean Platelet Volume 11.8 FL (9.6-12.0); Monocytes % 8.6 % (1.7-12.7); NRBC # 0.02 10*3/uL; Neutrophils % 71.9 % (38.7-73.9); Platelet Count 255 T/CUMM (130-400); Red Blood Count 4.04 MC/CUMM (3.8-5.5); Red Cell Distribution Width 17.1 % (9.3-17.3); White Blood Count 10.2 T/CUMM (4-12)
[2020-01-28 09:01] LABS: Calcium 8.9 MG/DL (8.5-10.1)
[2020-01-28 09:04] LABS: Risk Ratio 5.35; VLDL CHOLESTEROL 25.2 MG/DL
[2020-01-28] MEDS: DOCUSATE SODIUM 100 MG CAPSULE PO SCH (09:20)
[2020-01-28] MEDS: ASPIRIN EC 81 MG TABLET PO SCH (09:20)
[2020-01-28] MEDS: POTASSIUM CHLORIDE 20 MEQ TABLET PO SCH (09:20)
[2020-01-28] MEDS: amLODIPine 5 MG TABLET PO SCH (09:21)
[2020-01-28] MEDS: FUROSEMIDE 40 MG TABLET PO SCH (09:21)
[2020-01-28] MEDS: SERTRALINE 25 MG TABLET PO SCH (09:21)
[2020-01-28] MEDS: POLYETHYLENE GLYCOL POWDER 17 GM PACK PO SCH ×2 (09:23→09:34)
[2020-01-28] MEDS: ACETAMINOPHEN 325 MG TABLET PO PRN (11:59)
[2020-01-28] MEDS: INSULIN LISPRO 100 UNIT/ML SUBCUT SCH ×2 (12:15→16:52)
[2020-01-28] MEDS: LORazepam 2 MG/1 ML VIAL IV PRN (21:58)
[2020-01-28] MEDS: DONEPEZIL 5 MG TABLET PO SCH (22:12)
[2020-01-28] MEDS: ATORVASTATIN 40 MG TABLET PO SCH (22:12)
[2020-01-28] MEDS: QUEtiapine 25 MG TABLET PO SCH (22:12)
[2020-01-28] MEDS: ZIPRASIDONE 20 MG/1 ML VIAL IM PRN (23:52)
[2020-01-29] MEDS: INSULIN GLARGINE 100 UNIT/ML SUBCUT SCH ×2 (06:00→23:46)
[2020-01-29] MEDS: INSULIN LISPRO 100 UNIT/ML SUBCUT SCH ×5 (08:17→23:46)
[2020-01-29] MEDS: POTASSIUM CHLORIDE 20 MEQ TABLET PO SCH (09:59)
[2020-01-29] MEDS: amLODIPine 5 MG TABLET PO SCH (09:59)
[2020-01-29] MEDS: FUROSEMIDE 40 MG TABLET PO SCH (09:59)
[2020-01-29] MEDS: DOCUSATE SODIUM 100 MG CAPSULE PO SCH (09:59)
[2020-01-29] MEDS: ASPIRIN EC 81 MG TABLET PO SCH (09:59)
[2020-01-29] MEDS: SERTRALINE 25 MG TABLET PO SCH (09:59)
[2020-01-29] MEDS: POLYETHYLENE GLYCOL POWDER 17 GM PACK PO SCH (09:59)
[2020-01-29] MEDS: DONEPEZIL 5 MG TABLET PO SCH (23:46)
[2020-01-29] MEDS: ATORVASTATIN 40 MG TABLET PO SCH (23:47)
[2020-01-29] MEDS: QUEtiapine 25 MG TABLET PO SCH (23:47)
[2020-01-30] MEDS: LORazepam 2 MG/1 ML VIAL IV PRN (03:10)
[2020-01-30] MEDS: INSULIN LISPRO 100 UNIT/ML SUBCUT SCH ×3 (08:47→17:14)
[2020-01-30] MEDS: DOCUSATE SODIUM 100 MG CAPSULE PO SCH (08:48)
[2020-01-30] MEDS: POTASSIUM CHLORIDE 20 MEQ TABLET PO SCH (08:48)
[2020-01-30] MEDS: POLYETHYLENE GLYCOL POWDER 17 GM PACK PO SCH (08:49)
[2020-01-30] MEDS: SERTRALINE 25 MG TABLET PO SCH (08:49)
[2020-01-30] MEDS: ASPIRIN EC 81 MG TABLET PO SCH (08:49)
[2020-01-30] MEDS: FUROSEMIDE 40 MG TABLET PO SCH (08:49)
[2020-01-30] MEDS: amLODIPine 5 MG TABLET PO SCH (08:49)
[2020-01-30] MEDS: ACETAMINOPHEN 325 MG TABLET PO PRN (20:30)
[2020-01-30] MEDS: DONEPEZIL 5 MG TABLET PO SCH (23:16)
[2020-01-30] MEDS: ATORVASTATIN 40 MG TABLET PO SCH (23:16)
[2020-01-30] MEDS: QUEtiapine 25 MG TABLET PO SCH (23:16)
[2020-01-31] MEDS: ZIPRASIDONE 20 MG/1 ML VIAL IM PRN (01:38)
[2020-01-31] MEDS: INSULIN GLARGINE 100 UNIT/ML SUBCUT SCH (07:20)
[2020-01-31] MEDS: INSULIN LISPRO 100 UNIT/ML SUBCUT SCH ×4 (07:42→17:44)
[2020-01-31 07:54] LABS: Basophils # 0.1 10*3/uL (0.0-0.2); Basophils % 0.7 % (0.0-0.8); Eosinophils # 0.3 10*3/uL (0.0-0.87); Hemoglobin 9.6 GM/DL (12.0-16.0); Immature Granulocytes % 0.7 %; Immature Granulocytes Absolute 0.06 #; Lymphocytes # 1.6 10*3/uL (1.4-4.0); Lymphocytes % 18.8 % (21.3-54.2); Mean Corpuscular Volume 79.2 FL (87-102); Mean Platelet Volume 10.8 FL (9.6-12.0); Monocytes % 9.5 % (1.7-12.7); Neutrophils % 66.3 % (38.7-73.9); Platelet Count 293 T/CUMM (130-400); Red Blood Count 3.79 MC/CUMM (3.8-5.5); Red Cell Distribution Width 17.5 % (9.3-17.3); White Blood Count 8.3 T/CUMM (4-12)
[2020-01-31 08:28] LABS: Calcium 8.7 MG/DL (8.5-10.1); Osmolality,Calculated 272.1 MOS/KG (273-304)
[2020-01-31] MEDS: DOCUSATE SODIUM 100 MG CAPSULE PO SCH (09:00)
[2020-01-31] MEDS: ASPIRIN EC 81 MG TABLET PO SCH (09:00)
[2020-01-31] MEDS ORDERED: LOSARTAN 25 MG TABLET PO SCH (09:00)
[2020-01-31] MEDS: SERTRALINE 25 MG TABLET PO SCH (09:00)
[2020-01-31] MEDS: POTASSIUM CHLORIDE 20 MEQ TABLET PO SCH (09:00)
[2020-01-31] MEDS: FUROSEMIDE 40 MG TABLET PO SCH (09:00)
[2020-01-31] MEDS ORDERED: FERROUS SULFATE 325 MG TABLET PO SCH (09:00)
[2020-01-31] MEDS: POLYETHYLENE GLYCOL POWDER 17 GM PACK PO SCH (09:01)
[2020-01-31] MEDS ORDERED: TUBERCULIN SKIN TEST 0.1 ML SYRINGE INTRADERM ONE (10:00)
[2020-01-31 12:12] VITALS: BP 145/78
[2020-01-31] MEDS ORDERED: INSULIN GLARGINE 100 UNIT/ML SUBCUT SCH (21:00)
== END 2020-01-31 17:30 | disposition swing bed (61) | DRG 243 ==
LOC: EDUNIT# → EDBD → N.ED 23:08 → N.EDINP 23:08 → N.CC 01-20 00:34 → N.TELEN 01-22 18:50
PROVIDERS: ADMIT Internal Medicine Cardiovascular Disease; ATTEND Internal Medicine Cardiovascular Disease

== ENCOUNTER 2020-02-06 21:57 | Observation (INO) ==
[2020-02-06 23:11] LABS: Basophils # 0.1 10*3/uL (0.0-0.2); Basophils % 0.5 % (0.0-0.8); Eosinophils # 0.2 10*3/uL (0.0-0.87); Eosinophils % 2.2 % (0.00-10.9); Hematocrit 32.9 VOL% (35.7-47.0); Hemoglobin 10.8 GM/DL (12.0-16.0); Immature Granulocytes % 0.5 %; Immature Granulocytes Absolute 0.05 #; Lymphocytes # 1.1 10*3/uL (1.4-4.0); Mean Corpuscular HGB Conc 32.8 GM/DL (32-36); Mean Platelet Volume 11.8 FL (9.6-12.0); Neutrophils % 78.8 % (38.7-73.9); Platelet Count 351 T/CUMM (130-400); Red Blood Count 4.22 MC/CUMM (3.8-5.5); Red Cell Distribution Width 17.3 % (9.3-17.3); White Blood Count 9.7 T/CUMM (4-12)
[2020-02-06 23:28] LABS: Acetaminophen < 2.0 UG/ML (10-30); Salicylate < 2.8 MG/DL (2.8-20)
[2020-02-06 23:30] LABS: Amorphous Crystals,Urine Few /HPF (Few); Bacteria,Urine Many /HPF (Few); Bilirubin,Urine Negative (Negative); Blood, Urine Negative (Negative); Glucose,Urine (UA) Negative (Negative); Ketones,Urine 5 mg/dL (Negative); Mucus,Urine Occasional /LPF (Occasional); Nitrite,Urine Negative (Negative); Protein,Urine Negative; Squamous Epithelial Cell,Urine Occasional /HPF (0-10); Urine Appearance Slightly Hazy (Clear); Urine Specific Gravity 1.021 (1.001-1.035); Urine Urobilinogen < 2.0 EU/DL (0.2-1.0); WBC,Urine 6 /HPF (0-6)
[2020-02-06 23:37] LABS: Alanine Aminotransferase 21 U/L (13-56); Albumin 3.4 G/DL (3.4-5.0); Alkaline Phosphatase 65 U/L (45-117); Aspartate Amino Transferase 29 U/L (0-37); Blood Urea Nitrogen 20 MG/DL (7-18); Calcium 8.9 MG/DL (8.5-10.1); Estimated Glom Filtration Rate 72 ML/MIN; Glucose 157 MG/DL (74-106); Osmolality,Calculated 275.1 MOS/KG (273-304); Total Protein 7.9 G/DL (6.4-8.3)
[2020-02-06 23:52] LABS: Barbiturates Screen,Urine Negative (Negative); Benzodiazepines Screen,Urine Negative (Negative); Cannabinoid Screen,Urine Negative (Negative); Opiate Screen,Urine Negative (Negative); Phencyclidine Screen,Urine Negative (Negative)
[2020-02-07] MEDS ORDERED: cefTRIAXone 1,000 MG in SODIUM CHLORIDE 0.9% 100 ML IV STA (00:05)
[2020-02-07] MEDS ORDERED: ENOXAPARIN 30 MG/0.3 ML SYRINGE SUBCUT STA (00:21)
[2020-02-07] MEDS ORDERED: ASPIRIN CHEW 81 MG TABLET PO STA (00:21)
[2020-02-07] MEDS ORDERED: DEXTROSE 50% 25 GM/50 ML VIAL IV PRN (01:45)
[2020-02-07] MEDS ORDERED: GLUCAGON 1 MG VIAL IM PRN (01:45)
[2020-02-07] MEDS ORDERED: diphenhydrAMINE CAP 25 MG CAPSULE PO PRN (02:30)
[2020-02-07] MEDS ORDERED: guaiFENesin/DM ER 600-30 MG TABLET PO PRN (02:30)
[2020-02-07] MEDS ORDERED: ONDANSETRON 4 MG/2 ML VIAL IV PRN (02:30)
[2020-02-07] MEDS ORDERED: ACETAMINOPHEN 325 MG TABLET PO PRN (02:30)
[2020-02-07] MEDS ORDERED: NICOTINE 21 MG/24 HR PATCH TRANSDERM PRN (02:30)
[2020-02-07] MEDS ORDERED: cefTRIAXone 1,000 MG in SYRINGE 1 EACH IV SCH (07:30)
[2020-02-07] MEDS ORDERED: FUROSEMIDE 40 MG TABLET PO SCH (10:30)
[2020-02-07] MEDS ORDERED: LOSARTAN 25 MG TABLET PO SCH (10:30)
[2020-02-07] MEDS: INSULIN REGULAR 100 UNIT/ML SUBCUT SCH (11:34)
[2020-02-07 15:48] VITALS: BP 132/75
[2020-02-07] MEDS ORDERED: ATORVASTATIN 40 MG TABLET PO SCH (21:00)
[2020-02-08] MEDS ORDERED: ASPIRIN EC 81 MG TABLET PO SCH (09:00)
== END 2020-02-07 17:27 ==
LOC: EDUNIT# → EDBD → N.ED 21:57 → N.EDINP 21:57 → N.TELES 02-07 04:00
PROVIDERS: ADMIT Internal Medicine Geriatric Medicine; ATTEND Internal Medicine Geriatric Medicine

== ENCOUNTER 2020-02-16 16:06 | Observation (INO) ==
[2020-02-16] MEDS ORDERED: ONDANSETRON 4 MG/2 ML VIAL IV STA (16:27)
[2020-02-16] MEDS ORDERED: MECLIZINE 25 MG TABLET PO STA (16:27)
[2020-02-16 17:32] LABS: Basophils % 0.5 % (0.0-0.8); Eosinophils # 0.3 10*3/uL (0.0-0.87); Eosinophils % 4.1 % (0.00-10.9); Hemoglobin 11.1 GM/DL (12.0-16.0); Immature Granulocytes % 0.3 %; Immature Granulocytes Absolute 0.02 #; Lymphocytes # 1.6 10*3/uL (1.4-4.0); Lymphocytes % 19.6 % (21.3-54.2); Mean Corpuscular HGB Conc 31.7 GM/DL (32-36); Mean Corpuscular Volume 79.4 FL (87-102); Mean Platelet Volume 12.4 FL (9.6-12.0); Monocytes % 7.6 % (1.7-12.7); Neutrophils % 67.9 % (38.7-73.9); Platelet Count 175 T/CUMM (130-400); Red Blood Count 4.41 MC/CUMM (3.8-5.5); Red Cell Distribution Width 17.8 % (9.3-17.3); White Blood Count 7.9 T/CUMM (4-12)
[2020-02-16 17:39] LABS: Bacteria,Urine Occasional /HPF (Few); Bilirubin,Urine Negative (Negative); Blood, Urine Moderate mg/dL (Negative); Glucose,Urine (UA) Negative (Negative); Ketones,Urine Negative (Negative); Mucus,Urine Occasional /LPF (Occasional); Nitrite,Urine Negative (Negative); Protein,Urine Negative; RBC,Urine 25 /HPF (0-4); Squamous Epithelial Cell,Urine Occasional /HPF (0-10); Urine Appearance CLOUDY (Clear); Urine Color Yellow (Yellow); Urine Specific Gravity 1.011 (1.001-1.035); Urine Urobilinogen < 2.0 EU/DL (0.2-1.0); WBC,Urine 61 /HPF (0-6)
[2020-02-16 17:41] LABS: Alanine Aminotransferase 14 U/L (13-56); Albumin 3.3 G/DL (3.4-5.0); Alkaline Phosphatase 57 U/L (45-117); Aspartate Amino Transferase 19 U/L (0-37); Bilirubin,Total < 0.39 MG/DL (0.2-1.0); Blood Urea Nitrogen 9 MG/DL (7-18); Calcium 8.7 MG/DL (8.5-10.1); Estimated Glom Filtration Rate 96 ML/MIN; Glucose 123 MG/DL (74-106); INR 1.1; Osmolality,Calculated 274.7 MOS/KG (273-304); PT Patient Result 11.4 SECS (9.8-11.9); Total Protein 7.2 G/DL (6.4-8.3)
[2020-02-16 17:48] LABS: Barbiturates Screen,Urine Negative (Negative); Benzodiazepines Screen,Urine Negative (Negative); Cannabinoid Screen,Urine Negative (Negative); Opiate Screen,Urine Negative (Negative); Phencyclidine Screen,Urine Negative (Negative)
[2020-02-16] MEDS ORDERED: cefTRIAXone 1,000 MG in SODIUM CHLORIDE 0.9% 100 ML IV STA (18:30)
[2020-02-16] MEDS ORDERED: FUROSEMIDE 40 MG/4 ML VIAL IV STA (18:31)
[2020-02-16 18:49] LABS: Hypochromasia 2+; Microcytosis 1+
[2020-02-16 18:50] LABS: Platelet Estimate Decreased
[2020-02-16] MEDS ORDERED: GLUCAGON 1 MG VIAL IM PRN (19:32)
[2020-02-16] MEDS ORDERED: DEXTROSE 50% 25 GM/50 ML SYRINGE IV PRN (19:32)
[2020-02-16] MEDS: ENOXAPARIN 40 MG/0.4 ML SYRINGE SUBCUT SCH (22:53)
[2020-02-16] MEDS: INSULIN LISPRO 100 UNIT/ML SUBCUT SCH (22:53)
[2020-02-17 06:32] LABS: Calcium 8.7 MG/DL (8.5-10.1); Osmolality,Calculated 274.5 MOS/KG (273-304); Thyroid Stimulating Hormone 2.99 uIU/ml (0.358-3.74)
[2020-02-17 07:47] LABS: Basophils # 0.1 10*3/uL (0.0-0.2); Basophils % 0.7 % (0.0-0.8); Eosinophils # 0.2 10*3/uL (0.0-0.87); Eosinophils % 3.5 % (0.00-10.9); Hematocrit 32.7 VOL% (35.7-47.0); Hemoglobin 10.6 GM/DL (12.0-16.0); Immature Granulocytes % 0.3 %; Immature Granulocytes Absolute 0.02 #; Lymphocytes # 1.6 10*3/uL (1.4-4.0); Lymphocytes % 23.5 % (21.3-54.2); Mean Corpuscular HGB Conc 32.4 GM/DL (32-36); Mean Platelet Volume 12.2 FL (9.6-12.0); Monocytes % 8.7 % (1.7-12.7); Neutrophils % 63.3 % (38.7-73.9); Platelet Count 156 T/CUMM (130-400); Red Blood Count 4.09 MC/CUMM (3.8-5.5); Red Cell Distribution Width 17.7 % (9.3-17.3); White Blood Count 6.8 T/CUMM (4-12)
[2020-02-17] MEDS ORDERED: DEXTROSE 50% 25 GM/50 ML VIAL IV PRN (08:53)
[2020-02-17] MEDS ORDERED: IRON DEXTRAN IV ONE ×2 (09:28→10:30)
[2020-02-17] MEDS ORDERED: SODIUM CHLORIDE 0.9% IV ONE ×2 (09:28→10:30)
[2020-02-17] MEDS: INSULIN LISPRO 100 UNIT/ML SUBCUT SCH ×4 (10:06→22:11)
[2020-02-17] MEDS: ASPIRIN EC 81 MG TABLET PO SCH (10:25)
[2020-02-17] MEDS: amLODIPine 2.5 MG TABLET PO SCH (10:25)
[2020-02-17] MEDS: FERROUS SULFATE 325 MG TABLET PO SCH ×2 (10:25→22:04)
[2020-02-17] MEDS: FUROSEMIDE 40 MG TABLET PO SCH (10:25)
[2020-02-17] MEDS ORDERED: IRON DEXTRAN 25 MG in SYRINGE 1 EACH IV ONE (10:30)
[2020-02-17] MEDS ORDERED: cefTRIAXone 1,000 MG in SYRINGE 1 EACH IV SCH (20:00)
[2020-02-17] MEDS ORDERED: ATORVASTATIN 40 MG TABLET PO SCH (21:00)
[2020-02-17] MEDS: ENOXAPARIN 40 MG/0.4 ML SYRINGE SUBCUT SCH (22:04)
[2020-02-18 05:26] LABS: Basophils # 0.1 10*3/uL (0.0-0.2); Basophils % 0.8 % (0.0-0.8); Eosinophils # 0.3 10*3/uL (0.0-0.87); Eosinophils % 4.3 % (0.00-10.9); Hematocrit 32.3 VOL% (35.7-47.0); Hemoglobin 10.3 GM/DL (12.0-16.0); Immature Granulocytes % 0.3 %; Immature Granulocytes Absolute 0.02 #; Lymphocytes # 1.8 10*3/uL (1.4-4.0); Lymphocytes % 27.8 % (21.3-54.2); Mean Corpuscular HGB Conc 31.9 GM/DL (32-36); Monocytes % 9.2 % (1.7-12.7); Neutrophils % 57.6 % (38.7-73.9); Platelet Count 150 T/CUMM (130-400); Red Blood Count 4.09 MC/CUMM (3.8-5.5); Red Cell Distribution Width 17.5 % (9.3-17.3); White Blood Count 6.5 T/CUMM (4-12)
[2020-02-18 05:49] LABS: Hypochromasia 1+; Microcytosis Slight; Platelet Estimate Normal
[2020-02-18 06:00] LABS: Calcium 8.6 MG/DL (8.5-10.1); Osmolality,Calculated 274.7 MOS/KG (273-304)
[2020-02-18 08:03] VITALS: BP 124/56
[2020-02-18] MEDS: INSULIN LISPRO 100 UNIT/ML SUBCUT SCH (09:50)
[2020-02-18] MEDS: amLODIPine 2.5 MG TABLET PO SCH (09:51)
[2020-02-18] MEDS: FUROSEMIDE 40 MG TABLET PO SCH (09:51)
[2020-02-18] MEDS: FERROUS SULFATE 325 MG TABLET PO SCH (09:52)
[2020-02-18] MEDS: ASPIRIN EC 81 MG TABLET PO SCH (09:52)
== END 2020-02-18 10:20 | disposition home or self-care (01) ==
LOC: EDUNIT# → EDBD → N.ED 16:06 → N.EDINP 16:06 → N.TELEN 21:19
PROVIDERS: ADMIT Internal Medicine; ATTEND Internal Medicine

== ENCOUNTER 2020-12-25 20:22 | Inpatient (IN) ==
[2020-12-25 21:47] LABS: Basophils % 0.2 % (0.0-0.8); Eosinophils # 0.1 10*3/uL (0.0-0.87); Eosinophils % 0.6 % (0.00-10.9); Hematocrit 26.7 VOL% (35.7-47.0); Hemoglobin 8.5 GM/DL (12.0-16.0); Immature Granulocytes % 0.4 %; Immature Granulocytes Absolute 0.05 #; Lymphocytes # 0.9 10*3/uL (1.4-4.0); Lymphocytes % 7.1 % (21.3-54.2); Mean Corpuscular HGB Conc 31.8 GM/DL (32-36); Mean Corpuscular Volume 79.2 FL (87-102); Mean Platelet Volume 10.4 FL (9.6-12.0); Monocytes % 7.2 % (1.7-12.7); Neutrophils % 84.5 % (38.7-73.9); Platelet Count 343 T/CUMM (130-400); Red Blood Count 3.37 MC/CUMM (3.8-5.5); Red Cell Distribution Width 16.2 % (9.3-17.3); White Blood Count 12.5 T/CUMM (4-12)
[2020-12-25 22:03] LABS: Calcium 8.5 MG/DL (8.5-10.1); Osmolality,Calculated 276.7 MOS/KG (273-304); Potassium 4.2 MMOL/L (3.5-5.1)
[2020-12-25] MEDS ORDERED: ACETAMINOPHEN 500 MG TABLET PO STA (22:15)
[2020-12-26 02:48] LABS: Bilirubin,Urine Negative (Negative); Blood, Urine Negative (Negative); Glucose,Urine (UA) Negative (Negative); Hyaline Casts,Urine 9 /LPF (0-3); Ketones,Urine Negative (Negative); Mucus,Urine Many /LPF (Occasional); Nitrite,Urine Negative (Negative); Protein,Urine Negative; RBC,Urine 2 /HPF (0-4); Squamous Epithelial Cell,Urine Moderate /HPF (0-10); Urine Appearance CLOUDY (Clear); Urine Color Amber (Yellow)
[2020-12-26] MEDS ORDERED: ACETAMINOPHEN 325 MG TABLET PO PRN (03:54)
[2020-12-26] MEDS ORDERED: ONDANSETRON 4 MG/2 ML VIAL IV PRN (03:54)
[2020-12-26] MEDS ORDERED: DEXTROSE 50% 25 GM/50 ML VIAL IV PRN (03:54)
[2020-12-26] MEDS ORDERED: GLUCAGON 1 MG VIAL IM PRN (03:54)
[2020-12-26] MEDS: SERTRALINE 25 MG TABLET PO SCH (10:11)
[2020-12-26] MEDS: MEMANTINE 5 MG TABLET PO SCH ×2 (10:11→21:18)
[2020-12-26] MEDS: PANTOPRAZOLE 40 MG TABLET PO SCH (10:11)
[2020-12-26] MEDS: FERROUS SULFATE 325 MG TABLET PO SCH ×2 (10:11→21:18)
[2020-12-26] MEDS: ENOXAPARIN 40 MG/0.4 ML SYRINGE SUBCUT SCH (10:12)
[2020-12-26] MEDS: amLODIPine 2.5 MG TABLET PO SCH (11:36)
[2020-12-26] MEDS: FUROSEMIDE 40 MG TABLET PO SCH (11:36)
[2020-12-26] MEDS: DONEPEZIL 10 MG TABLET PO SCH (21:18)
[2020-12-26] MEDS: ATORVASTATIN 40 MG TABLET PO SCH (21:18)
[2020-12-27 07:13] LABS: Basophils % 0.5 % (0.0-0.8); Eosinophils # 0.3 10*3/uL (0.0-0.87); Eosinophils % 3.5 % (0.00-10.9); Hematocrit 25.2 VOL% (35.7-47.0); Hemoglobin 8.2 GM/DL (12.0-16.0); Immature Granulocytes % 0.2 %; Immature Granulocytes Absolute 0.02 #; Lymphocytes # 1.9 10*3/uL (1.4-4.0); Lymphocytes % 22.5 % (21.3-54.2); Mean Corpuscular HGB Conc 32.5 GM/DL (32-36); Mean Corpuscular Volume 78.5 FL (87-102); Mean Platelet Volume 10.9 FL (9.6-12.0); Monocytes % 9.4 % (1.7-12.7); Neutrophils % 63.9 % (38.7-73.9); Platelet Count 356 T/CUMM (130-400); Red Blood Count 3.21 MC/CUMM (3.8-5.5); White Blood Count 8.2 T/CUMM (4-12)
[2020-12-27 07:33] LABS: Calcium 8.5 MG/DL (8.5-10.1); Osmolality,Calculated 277.3 MOS/KG (273-304); Potassium 3.6 MMOL/L (3.5-5.1)
[2020-12-27] MEDS: PANTOPRAZOLE 40 MG TABLET PO SCH (09:00)
[2020-12-27] MEDS: ENOXAPARIN 40 MG/0.4 ML SYRINGE SUBCUT SCH (09:00)
[2020-12-27] MEDS: FERROUS SULFATE 325 MG TABLET PO SCH ×2 (09:00→20:58)
[2020-12-27] MEDS: SERTRALINE 25 MG TABLET PO SCH (09:00)
[2020-12-27] MEDS: FUROSEMIDE 40 MG TABLET PO SCH (09:00)
[2020-12-27] MEDS: MEMANTINE 5 MG TABLET PO SCH ×2 (09:00→20:58)
[2020-12-27] MEDS: amLODIPine 2.5 MG TABLET PO SCH (10:03)
[2020-12-27] MEDS: ATORVASTATIN 40 MG TABLET PO SCH (20:58)
[2020-12-27] MEDS: DONEPEZIL 10 MG TABLET PO SCH (20:58)
[2020-12-28 05:00] LABS: Basophils # 0.1 10*3/uL (0.0-0.2); Basophils % 0.5 % (0.0-0.8); Eosinophils # 0.3 10*3/uL (0.0-0.87); Eosinophils % 3.7 % (0.00-10.9); Hematocrit 25.6 VOL% (35.7-47.0); Hemoglobin 8.2 GM/DL (12.0-16.0); Immature Granulocytes % 0.4 %; Immature Granulocytes Absolute 0.04 #; Lymphocytes # 1.8 10*3/uL (1.4-4.0); Lymphocytes % 19.9 % (21.3-54.2); Mean Corpuscular Volume 78.5 FL (87-102); Mean Platelet Volume 10.2 FL (9.6-12.0); Monocytes % 9.1 % (1.7-12.7); Neutrophils % 66.4 % (38.7-73.9); Platelet Count 395 T/CUMM (130-400); Red Blood Count 3.26 MC/CUMM (3.8-5.5); Red Cell Distribution Width 16.3 % (9.3-17.3); White Blood Count 9.1 T/CUMM (4-12)
[2020-12-28 05:31] LABS: % Iron Saturation 13.2 % (18-50); Ferritin 219.8 ng/mL (8-252)
[2020-12-28 05:35] LABS: Folate 9.53 NG/ML (5.38-24.0); Vitamin B12 341 PG/ML (211-911)
[2020-12-28 07:11] LABS: Sedimentation Rate-Westergren 91 MM/HR (0-30)
[2020-12-28] MEDS: MEMANTINE 5 MG TABLET PO SCH ×2 (09:38→20:29)
[2020-12-28] MEDS: FERROUS SULFATE 325 MG TABLET PO SCH ×2 (09:38→20:30)
[2020-12-28] MEDS: FUROSEMIDE 40 MG TABLET PO SCH (09:38)
[2020-12-28] MEDS: SERTRALINE 25 MG TABLET PO SCH (09:38)
[2020-12-28] MEDS: PANTOPRAZOLE 40 MG TABLET PO SCH (09:38)
[2020-12-28] MEDS: ENOXAPARIN 40 MG/0.4 ML SYRINGE SUBCUT SCH (09:38)
[2020-12-28] MEDS: amLODIPine 2.5 MG TABLET PO SCH (09:39)
[2020-12-28] MEDS ORDERED: TUBERCULIN SKIN TEST 0.1 ML SYRINGE INTRADERM ONE (10:00)
[2020-12-28] MEDS: MENTHOL/ZINC OXIDE OINT 71 GM JAR TOP SCH ×2 (12:16→20:30)
[2020-12-28] MEDS: DONEPEZIL 10 MG TABLET PO SCH (20:29)
[2020-12-28] MEDS: ATORVASTATIN 40 MG TABLET PO SCH (20:30)
[2020-12-29 06:46] LABS: Basophils # 0.1 10*3/uL (0.0-0.2); Basophils % 0.5 % (0.0-0.8); Eosinophils # 0.3 10*3/uL (0.0-0.87); Eosinophils % 3.1 % (0.00-10.9); Hematocrit 25.2 VOL% (35.7-47.0); Hemoglobin 8.2 GM/DL (12.0-16.0); Immature Granulocytes % 0.4 %; Immature Granulocytes Absolute 0.04 #; Lymphocytes % 20.8 % (21.3-54.2); Mean Corpuscular HGB Conc 32.5 GM/DL (32-36); Mean Corpuscular Volume 78.3 FL (87-102); Mean Platelet Volume 10.5 FL (9.6-12.0); Monocytes % 7.6 % (1.7-12.7); Neutrophils % 67.6 % (38.7-73.9); Platelet Count 427 T/CUMM (130-400); Red Blood Count 3.22 MC/CUMM (3.8-5.5); Red Cell Distribution Width 16.5 % (9.3-17.3); White Blood Count 9.4 T/CUMM (4-12)
[2020-12-29 07:07] LABS: Calcium 8.5 MG/DL (8.5-10.1); Osmolality,Calculated 276.4 MOS/KG (273-304); Potassium 3.3 MMOL/L (3.5-5.1)
[2020-12-29] MEDS: ENOXAPARIN 40 MG/0.4 ML SYRINGE SUBCUT SCH (08:24)
[2020-12-29] MEDS: MENTHOL/ZINC OXIDE OINT 71 GM JAR TOP SCH ×2 (08:24→20:44)
[2020-12-29] MEDS: amLODIPine 2.5 MG TABLET PO SCH (08:25)
[2020-12-29] MEDS: FUROSEMIDE 40 MG TABLET PO SCH (08:25)
[2020-12-29] MEDS: MEMANTINE 5 MG TABLET PO SCH ×2 (08:25→20:44)
[2020-12-29] MEDS: PANTOPRAZOLE 40 MG TABLET PO SCH (08:25)
[2020-12-29] MEDS: FERROUS SULFATE 325 MG TABLET PO SCH ×2 (08:25→20:44)
[2020-12-29] MEDS: SERTRALINE 25 MG TABLET PO SCH (08:25)
[2020-12-29] MEDS: DONEPEZIL 10 MG TABLET PO SCH (20:44)
[2020-12-29] MEDS: ATORVASTATIN 40 MG TABLET PO SCH (20:45)
[2020-12-30 05:08] LABS: Basophils % 0.4 % (0.0-0.8); Eosinophils # 0.3 10*3/uL (0.0-0.87); Eosinophils % 2.8 % (0.00-10.9); Hematocrit 26.8 VOL% (35.7-47.0); Hemoglobin 8.5 GM/DL (12.0-16.0); Immature Granulocytes % 0.5 %; Immature Granulocytes Absolute 0.05 #; Lymphocytes % 20.8 % (21.3-54.2); Mean Corpuscular HGB Conc 31.7 GM/DL (32-36); Mean Corpuscular Volume 79.3 FL (87-102); Mean Platelet Volume 10.5 FL (9.6-12.0); Monocytes % 7.9 % (1.7-12.7); Neutrophils % 67.6 % (38.7-73.9); Platelet Count 439 T/CUMM (130-400); Red Blood Count 3.38 MC/CUMM (3.8-5.5); Red Cell Distribution Width 16.5 % (9.3-17.3); White Blood Count 9.6 T/CUMM (4-12)
[2020-12-30 05:24] LABS: Calcium 8.7 MG/DL (8.5-10.1); Osmolality,Calculated 274.5 MOS/KG (273-304); Potassium 3.3 MMOL/L (3.5-5.1)
[2020-12-30] MEDS: MENTHOL/ZINC OXIDE OINT 71 GM JAR TOP SCH ×2 (09:24→20:55)
[2020-12-30] MEDS: FERROUS SULFATE 325 MG TABLET PO SCH ×2 (09:24→20:55)
[2020-12-30] MEDS: FUROSEMIDE 40 MG TABLET PO SCH (09:24)
[2020-12-30] MEDS: amLODIPine 2.5 MG TABLET PO SCH (09:24)
[2020-12-30] MEDS: ENOXAPARIN 40 MG/0.4 ML SYRINGE SUBCUT SCH (09:24)
[2020-12-30] MEDS: SERTRALINE 25 MG TABLET PO SCH (09:24)
[2020-12-30] MEDS: MEMANTINE 5 MG TABLET PO SCH ×2 (09:24→20:54)
[2020-12-30] MEDS: PANTOPRAZOLE 40 MG TABLET PO SCH (09:24)
[2020-12-30] MEDS: DONEPEZIL 10 MG TABLET PO SCH (20:54)
[2020-12-30] MEDS: ATORVASTATIN 40 MG TABLET PO SCH (20:54)
[2020-12-31] MEDS: amLODIPine 2.5 MG TABLET PO SCH (08:27)
[2020-12-31] MEDS: SERTRALINE 25 MG TABLET PO SCH (08:27)
[2020-12-31] MEDS: MEMANTINE 5 MG TABLET PO SCH ×2 (08:27→20:46)
[2020-12-31] MEDS: PANTOPRAZOLE 40 MG TABLET PO SCH (08:27)
[2020-12-31] MEDS: FERROUS SULFATE 325 MG TABLET PO SCH ×2 (08:27→20:46)
[2020-12-31] MEDS: MENTHOL/ZINC OXIDE OINT 71 GM JAR TOP SCH ×2 (08:27→20:46)
[2020-12-31] MEDS: FUROSEMIDE 40 MG TABLET PO SCH (08:27)
[2020-12-31] MEDS: ENOXAPARIN 40 MG/0.4 ML SYRINGE SUBCUT SCH (08:27)
[2020-12-31] MEDS ORDERED: POTASSIUM CHLORIDE 20 MEQ TABLET PO ONE (10:30)
[2020-12-31] MEDS: ATORVASTATIN 40 MG TABLET PO SCH (20:46)
[2020-12-31] MEDS: DONEPEZIL 10 MG TABLET PO SCH (20:46)
[2021-01-01] MEDS: SERTRALINE 25 MG TABLET PO SCH (09:06)
[2021-01-01] MEDS: MENTHOL/ZINC OXIDE OINT 71 GM JAR TOP SCH (09:06)
[2021-01-01] MEDS: MEMANTINE 5 MG TABLET PO SCH (09:06)
[2021-01-01] MEDS: FUROSEMIDE 40 MG TABLET PO SCH (09:06)
[2021-01-01] MEDS: amLODIPine 2.5 MG TABLET PO SCH (09:07)
[2021-01-01] MEDS: PANTOPRAZOLE 40 MG TABLET PO SCH (09:07)
[2021-01-01] MEDS: FERROUS SULFATE 325 MG TABLET PO SCH (09:07)
[2021-01-01] MEDS: ENOXAPARIN 40 MG/0.4 ML SYRINGE SUBCUT SCH (09:07)
[2021-01-01 12:05] VITALS: BP 106/85
== END 2021-01-01 15:13 | disposition home health service (06) | DRG 884 ==
LOC: EDBD → EDUNIT# → N.ED 20:22 → N.EDINP 20:22 → N.3E 12-26 04:16
PROVIDERS: ADMIT Internal Medicine; ATTEND Internal Medicine